=== PATIENT | male | born 1950 | race Caucasian/White ===

== ENCOUNTER 2019-03-05 19:16 | Emergency (ER) | payer MEDICARE, OTHER ==
[~2019-03-05] VITALS: Ht 172.7 cm; Wt 83.9 kg
[2019-03-05 19:54] LABS: BASOPHILS # (AUTO) 0.1 /CMM (0.0-0.2); BASOPHILS % (AUTO) 1.3 % (0.0-2.0); EOSINOPHILS % (AUTO) 1.8 % (0.0-6.0); HEMATOCRIT 41 % (39-51); HEMOGLOBIN 14.2 g/dL (13.5-17.5); LYMPHOCYTES # (AUTO) 2.5 /CMM (0.8-4.8); LYMPHOCYTES % (AUTO) 29.2 % (20.0-44.0); MEAN CORPUSCULAR HGB CONC 35 g/dl (31.0-36.0); MEAN CORPUSCULAR VOLUME 91 fL (80-96); MONOCYTES # (AUTO) 0.8 /CMM (0.1-1.30); MONOCYTES % (AUTO) 9.9 % (2.0-12.0); NEUTROPHILS # (AUTO) 4.9 /CMM (1.8-8.9); NEUTROPHILS % (AUTO) 57.8 % (43.0-81.0); PLATELET COUNT (AUTO) 209 /CMM (150-450); RED BLOOD CELL COUNT(AUTO) 4.52 MIL/uL (4.5-6.0); WHITE BLOOD COUNT (AUTO) 8.5 K/uL (4.3-11.0)
--- NOTE | 2019-03-05 20:02 | NUR ---
C/C HEADACHE AND NECK STIFFNESS X4HRS, "I HAD A LEFT LEG BLOOD CLOT AND I STARTED BLOOD THINNERS 2 WEEKS AGO"
[2019-03-05 20:03] LABS: CALCIUM, SERUM 8.6 mg/dL (8.5-10.1); POTASSIUM 3.6 mmol/L (3.5-5.1)
--- NOTE | 2019-03-05 20:05 | NUR ---
PT LEFT FOR CT
--- NOTE | 2019-03-05 20:45 | NUR ---
Patient discharged to home in stable condition. Written and verbal after care instructions given. Patient verbalizes understanding of instruction.
[2019-03-05 23:59] VITALS: BP 143/93
== END 2019-03-05 20:45 | disposition home or self-care (01) ==
LOC: ER 19:20
DX: R51 Headache (principal); Z86.718 Personal history of other venous thrombosis and embolism
CPT/HCPCS: 36415; 70450-TC; 80048-TC; 85025-TC; 85730-TC

== ENCOUNTER 2019-08-09 17:16 | Emergency (ER) | payer OTHER ==
[~2019-08-09] VITALS: Ht 167.6 cm; Wt 81.6 kg
[2019-08-09 17:23] VITALS: BP 115/77
[2019-08-22] MEDS ORDERED: RIVA10TA PO (13:21)
== END 2019-08-09 18:10 | disposition home or self-care (01) ==
LOC: ER 17:22
DX: S30.861A Insect bite (nonvenomous) of abdominal wall, initial encounter (principal); S40.862A Insect bite (nonvenomous) of left upper arm, initial encounter; S40.861A Insect bite (nonvenomous) of right upper arm, initial encounter; W57.XXXA Bitten or stung by nonvenomous insect and other nonvenomous arthropods, initial encounter; Y93.89 Activity, other specified; Y92.89 Other specified places as the place of occurrence of the external cause; Y99.8 Other external cause status

== ENCOUNTER 2019-08-21 17:05 | Inpatient (IN) | payer OTHER ==
[~2019-08-21] VITALS: Ht 172.7 cm; Wt 77.1 kg
--- NOTE | 2019-08-21 17:30 | NUR ---
VALERIE CRUZ, IS AT THE BEDSIDE.
--- NOTE | 2019-08-21 17:30 | NUR ---
PT PRESENTED TO THE ER WITH A C/O BLE +3 PITTING EDEMA. PT HAS SCABS ON BLE FROM BED BUGS. PT STATED THAT THE EDEMA IS RESENT. PT HAS THIS LAST YEAR. PT STATED THAT HE HAD A BLOOD CLOT IN THE LLE. PT IS CURRENTLY NOT ON BLOOD THINNERS.
[2019-08-21 17:48] LABS: BASOPHILS # (AUTO) 0.1 /CMM (0.0-0.2); BASOPHILS % (AUTO) 1.4 % (0.0-2.0); EOSINOPHILS % (AUTO) 7.8 % (0.0-6.0); HEMATOCRIT 43 % (39-51); HEMOGLOBIN 14.4 g/dL (13.5-17.5); LYMPHOCYTES # (AUTO) 2.1 /CMM (0.8-4.8); LYMPHOCYTES % (AUTO) 31.2 % (20.0-44.0); MEAN CORPUSCULAR HGB CONC 34 g/dl (31.0-36.0); MEAN CORPUSCULAR VOLUME 92 fL (80-96); MONOCYTES # (AUTO) 0.6 /CMM (0.1-1.30); MONOCYTES % (AUTO) 9.1 % (2.0-12.0); NEUTROPHILS # (AUTO) 3.3 /CMM (1.8-8.9); NEUTROPHILS % (AUTO) 50.5 % (43.0-81.0); PLATELET COUNT (AUTO) 207 /CMM (150-450); RED BLOOD CELL COUNT(AUTO) 4.63 MIL/uL (4.5-6.0); WHITE BLOOD COUNT (AUTO) 6.6 K/uL (4.3-11.0)
[2019-08-21 17:55] LABS: CALCIUM, SERUM 8.8 mg/dL (8.5-10.1); CARBON DIOXIDE 31 mmol/L (21-32); CHLORIDE 109 mmol/L (98-107); CREATININE 0.9 mg/dL (0.6-1.3); GLUCOSE 87 mg/dL (74-106); POTASSIUM 3.8 mmol/L (3.5-5.1); SODIUM SERUM 147 mmol/L (136-145); UREA NITROGEN, BLOOD 11 mg/dL (7-18)
[2019-08-21 18:11] LABS: ALANINE AMINOTRANSFERASE 12 U/L (12-78); ALBUMIN 3.3 g/dL (3.4-5.0); ALKALINE PHOSPHATASE 57 U/L (46-116); ASPARTATE AMINOTRANSFERASE 13 U/L (15-37); B-TYPE NATRIURETIC PEPTIDE 143 PG/ML (0-125); BILIRUBIN,DIRECT 0.1 mg/dL (0.0-0.2); BILIRUBIN,TOTAL 0.5 mg/dL (0.2-1.0); TOTAL PROTEIN, SERUM 6.5 g/dL (6.4-8.2)
[2019-08-21] MEDS ORDERED: ONDANSETRON 4 MG TAB.RAPDIS PO ONE (18:30)
[2019-08-21] MEDS ORDERED: TDAP [DIPH/PERTUSSIS/TET] 0.5 ML VIAL IM ONE (18:30)
[2019-08-21] MEDS ORDERED: HYDROCODONE/APAP 5/325MG 1 EACH TABLET PO ONE (18:30)
--- NOTE | 2019-08-21 18:35 | NUR ---
venous doppler in progress at the bedside.
--- NOTE | 2019-08-21 19:05 | NUR ---
doppler is finished.
--- NOTE | 2019-08-21 19:20 | NUR ---
PT REC'D A URINAL. URINE SAMPLE STILL NEEDED.
--- NOTE | 2019-08-21 19:48 | NUR ---
B MITCHELL, PAC IS AT THE BEDSIDE.
[2019-08-21] MEDS ORDERED: IPRATROPIUM NEB FS 0.5 MG/2.5 ML AMPUL.NEB NEB ONE (20:00)
[2019-08-21] MEDS ORDERED: predniSONE 20 MG TABLET PO ONE (20:00)
[2019-08-21] MEDS ORDERED: ALBUTEROL FS 2.5 MG/3 ML VIAL.NEB NEB ONE (20:00)
[2019-08-21] MEDS ORDERED: predniSONE 20 MG TABLET ONE (20:04)
[2019-08-21] MEDS ORDERED: ALBUTEROL FS 2.5 MG/3 ML VIAL.NEB ONE (20:13)
[2019-08-21] MEDS ORDERED: IPRATROPIUM NEB FS 0.5 MG/2.5 ML AMPUL.NEB ONE (20:13)
--- NOTE | 2019-08-21 20:30 | NUR ---
PT FINISHED BREATHING TX. PT REC'D MEDICATION ORDERED. PT IS ON THE MONITOR AND POX.
--- NOTE | 2019-08-21 20:50 | NUR ---
CALLED NURSING SUP FOR MEDSURG BED
--- NOTE | 2019-08-21 20:57 | NUR ---
REPORT GIVEN TO JULIUS HOLT
[2019-08-21] MEDS ORDERED: MAGNESIUM HYDROXIDE 30 ML UDC PO PRN (21:00)
[2019-08-21] MEDS ORDERED: ACETAMINOPHEN 325 MG TABLET PO PRN (21:00)
[2019-08-21] MEDS ORDERED: HYDROCODONE/APAP 5/325MG 1 EACH TABLET PO PRN (21:00)
[2019-08-21] MEDS ORDERED: Z GUARD REMEDY 2 OZ OINT TP PRN (21:00)
[2019-08-21] MEDS ORDERED: MAG HYDROX/AL HYDROX/SIMETH 30 ML UDC PO PRN (21:00)
[2019-08-21] MEDS ORDERED: ONDANSETRON HCL/PF 4 MG/2 ML VIAL IVP PRN (21:00)
--- NOTE | 2019-08-21 21:20 | NUR ---
RECEIVED PATIENT FROM ER VIA WC IN STABLE CONDITION. PATIENT AWAKE, A/OX4, CALM, COMPLIANT, AND ABLE TO VERBALIZE NEEDS AND PROVIDE HISTORY. NO C/O PAIN OR DISCOMFORT. PIV IN RFA #20 GAUGE INTACT AND PATENT. NOTED WITH GENERALIZED RASHES, SCABS, AND OPEN WOUNDS D/T SCRATCHING. ALSO NOTED WITH +4 BLE PITTING EDEMA AND ELEVATED VIA PILLOWS. PATIENT SEEN AND EXAMINED BY DR. BARROS. ENCOURAGED USE OF CALL LIGHT FOR ASSISTANCE AND VERBALIZED GOOD UNDERSTANDING. BED IN LOW LOCK SETTING. ROOM FREE OF CLUTTER AND BELONGINGS KEPT NEAR BEDSIDE. WILL CONTINUE TO MONITOR
[2019-08-22 01:14] VITALS: BP 125/87
[2019-08-22] MEDS: ENOXAPARIN SODIUM 80 MG/0.8 ML DISP.SYRIN SQ SCH ×2 (01:49→08:58)
[2019-08-22] MEDS: diphenhydrAMINE HCL ELIX 25 MG/10 ML UDC PO PRN ×2 (01:54→11:28)
[2019-08-22 06:29] LABS: BASOPHILS % (AUTO) 0.2 % (0.0-2.0); EOSINOPHILS % (AUTO) 0.1 % (0.0-6.0); HEMATOCRIT 42 % (39-51); HEMOGLOBIN 14.3 g/dL (13.5-17.5); LYMPHOCYTES # (AUTO) 0.8 /CMM (0.8-4.8); LYMPHOCYTES % (AUTO) 11.8 % (20.0-44.0); MEAN CORPUSCULAR HGB CONC 34 g/dl (31.0-36.0); MEAN CORPUSCULAR VOLUME 92 fL (80-96); MONOCYTES # (AUTO) 0.2 /CMM (0.1-1.30); MONOCYTES % (AUTO) 2.4 % (2.0-12.0); NEUTROPHILS # (AUTO) 6.1 /CMM (1.8-8.9); NEUTROPHILS % (AUTO) 85.5 % (43.0-81.0); PLATELET COUNT (AUTO) 190 /CMM (150-450); RED BLOOD CELL COUNT(AUTO) 4.58 MIL/uL (4.5-6.0); WHITE BLOOD COUNT (AUTO) 7.2 K/uL (4.3-11.0)
--- NOTE | 2019-08-22 06:40 | NUR ---
MS RN NOTES PATIENT ASLEEP IN BED WITH NO DISTRESS NOTED. CALL LIGHT WITHIN REACH. ALL DUE MEDS GIVEN ORDERED WITH NO ASE. PERIPHERAL LINE INTACT AND PATENT. ROOM FREE OF CLUTTER AND BELONGINGS KEPT NEAR BEDSIDE. WILL ENDORSE TO ONCOMING SHIFT.
[2019-08-22 06:58] LABS: CALCIUM, SERUM 8.6 mg/dL (8.5-10.1); PHOSPHORUS 3.3 mg/dL (2.5-4.9); POTASSIUM 4.3 mmol/L (3.5-5.1)
--- NOTE | 2019-08-22 07:20 | NUR ---
MS RN NOTES RECEIVED PATIENT IN BED, ALERT AND AWAKE ORIENTED X4. HOB ELEVATED. NO S/S OF RESPIRATORY DISTRESS. DENIES ANY C/O PAIN NOR DISCOMFORT AT THIS TIME. BLE WITH SWELLING, ELEVATED WITH PILLOWS. BED IN LOWEST POSITION, LOCKED. AMBULATORY WITH STEADY GAIT. BED SIDETAILS UP X2. CALL LIGHT WITHIN REACH.
[2019-08-22] MEDS ORDERED: HYDR28.32 TP (07:44)
[2019-08-22] MEDS ORDERED: DIPH25CA83 PO (07:44)
[2019-08-22 08:00] VITALS: BP 119/72
[2019-08-22] MEDS ORDERED: HYDROCORTISONE 1% CREAM 28.35 GM TUBE TP SCH (09:00)
--- NOTE | 2019-08-22 09:37 | NUR ---
WOUND CARE CONSULT: PT PRESENTS WITH REDNESS, EDEMA AND DRY WOUNDS/SCABS WITH SCRATCH CHOPRA AND ERYTHEMA ON LOWER LEGS, PRESENT ON ADMISSION. RECOMMEND DPM CONSULT. DR MIN NOTIFIED OF CONSULT REQUEST. SOME RED SCRATCH CHOPRA NOTED TO UPPER BODY BUT MAINLY LOWER LEGS. WILL SEE PRN. YO IN AGREEMENT WITH PLAN OF CARE. Addendum: 08/22/19 at 0939 by JOVITA FALL [id number] Amended: Links added.
--- NOTE | 2019-08-22 11:09 | NUR ---
Social service consult requested by for homelessness. Per MD notes and chart review, pt is a 69-year-old male who presented with bilateral lower extremity swelling x2 weeks. He states that symptoms have worsened since onset with increased swelling and pain. He reports a similar episode with same symptoms last year and was hospitalized x4 days. He states that he was recently diagnosed with flea bites and was given prescription for Benadryl and hydrocortisone cream. He states he has a history of DVT to his legs following his hospitalization last year. He was told the blood clots had resolved and is no longer on anticoagulation. TOOL GRINDER SET UP OPERATOR GEAR met with the pt bedside. TOOL GRINDER SET UP OPERATOR GEAR introduced self and purpose of the visit. Pt is alert and oriented x 4. Pt's mood is congruent. Pt. reports to be homeless and lives in his car. Pt's car is currently parked outside the ED. Pt states, he was illegally evicted from his apartment in October 2018 and has an open case in court. Pt reports to have a court date on September 04, 2019. Pt has applied for Section 8 housing and is awaiting approval. offered pt winter long term placement, however, pt declined stating, " I've been there." Pt receives $930 per month in SSI. TOOL GRINDER SET UP OPERATOR GEAR offered pt list of Independent living but pt. declined. Pt states he has a lot of friends who help him out and he manages with $930/month of income. Pt declined homeless packet with resources. Pt admits to smoking 1 pack of cigarettes every 2 to 3 days. He denies any illicit drug use or chronic alcoholism. Pt denies any psychiatric diagnosis or hospitalizations. Pt denies SI/HI and visual/auditory hallucinations at this time. TOOL GRINDER SET UP OPERATOR GEAR provided pt with active listening and supportive counseling. Pt declined all homeless resources at this time. Homeless patient waiver form to be signed upon discharge. SW is available, if needed.
[2019-08-22] MEDS ORDERED: RIVA10TA PO (13:21)
--- NOTE | 2019-08-22 13:42 | NUR ---
MS RN NOTES ALERT AND AWAKE ORIENTED X4. AMBULATORY WITH STEADY GAIT. DENIES ANY C/O PAIN NOR DISCOMFORT AT THIS TIME. DISCHARGE INSTRUCTIONS EXPLAINED, DISCHARGE PACKET AND PRESCRIPTION GIVEN TO PATIENT. IV ACCESS REMOVED WITH CATHETER TIP INTACT WITH GAUZE DRESSING IN PLACE. ALL BELONGINGS ACCOUNTED FOR. AMBULATORY WITH STEADY GAIT. PATIENT LEFT IN STABLE CONDITION.
== END 2019-08-22 13:37 | disposition home or self-care (01) | DRG 607 ==
LOC: ER 17:10 → MEDSG2 21:05
PROVIDERS: ADMIT Internal Medicine; ATTEND Nurse Practitioner Acute Care
DX: L30.9 Dermatitis, unspecified (principal); E87.0 Hyperosmolality and hypernatremia; I82.512 Chronic embolism and thrombosis of left femoral vein; Z59.0 Homelessness; F17.210 Nicotine dependence, cigarettes, uncomplicated; R53.1 Weakness; W57.XXXA Bitten or stung by nonvenomous insect and other nonvenomous arthropods, initial encounter; Y93.9 Activity, unspecified; Y92.89 Other specified places as the place of occurrence of the external cause
CPT/HCPCS: 36415; 71045-TC; 80048-TC; 80076-TC; 83735-TC; 83880; 84100-TC; 84484-TC; 85025-TC; 87081-TC; 93970-TC; 97116-TC; 97530-TC; G0378; J1650; Q0163

== ENCOUNTER 2019-10-29 19:32 | Emergency (ER) | payer OTHER ==
[~2019-10-29] VITALS: Ht 172.7 cm; Wt 81.6 kg
[~2019-10-29 19:32] MED LIST: DIPH25CA83 PO; HYDR28.32 TP; RIVA10TA PO
[2019-10-29 21:09] VITALS: BP 148/88
== END 2019-10-29 21:10 | disposition home or self-care (01) ==
LOC: ER 19:37
DX: L98.9 Disorder of the skin and subcutaneous tissue, unspecified (principal); Z79.899 Other long term (current) drug therapy